=== PATIENT | male | born 1965 | race African-American/Black ===

== ENCOUNTER 2021-02-27 13:06 | Emergency (ER) | payer OTHER, MEDICAID ==
[~2021-02-27] VITALS: Ht 170.2 cm; Wt 133.9 kg
[2021-02-27 13:22] VITALS: BP 152/76
--- NOTE | 2021-02-27 13:44 | NUR ---
PT AMB TO BED 11.
--- NOTE | 2021-02-27 14:01 | NUR ---
56 Y/O MALE C/O ABD PAIN X2 WEEKS WITH DARD TO BLACK STOOL X1 WEEK. PAIN IS 5/10 IN UMBILICAL REGION, NON RADIATING, ACHE. NOP NAUSEA, - VOMITING, - DIZZY, - WEAKNESS.PT HAS BEEN USING PEPTO BISMUTH WITH ONLY TEMPORARY RELIEF. PT AMBULATED TO BED UNASSISTED WITH USE OF CANE. PT IN LAYING IN BED W/ RAIL UP X1, BED IN LOWEST POSITION. HX: DEGENERATIVE ARTHRITIS, HTN, DM, R HIP RELACEMENT ALLERGIES: UNKNOWN "LIQUID ABX" MEDS: METFORMIN, LOSARTAN, + UNKNOWN MEDS
--- NOTE | 2021-02-27 14:31 | NUR ---
PT TAKEN TO XRAY VIA W/C
--- NOTE | 2021-02-27 14:53 | NUR ---
RETURNED FROM RADIOLOGY
--- NOTE | 2021-02-27 14:54 | NUR ---
LABS AT BEDSIDE
[2021-02-27 15:12] LABS: BASOPHILS # (AUTO) 0.1 K/uL (0.00-0.22); BASOPHILS % (AUTO) 0.8 % (0.0-2.0); EOSINOPHILS # (AUTO) 0.2 K/uL (0-0.4); EOSINOPHILS % (AUTO) 2.8 % (0.0-4.0); HEMATOCRIT 40.7 % (36-52); HEMOGLOBIN 13.7 g/dL (12.0-18.0); LYMPHOCYTES # (AUTO) 2.2 K/uL (2.0-11.5); LYMPHOCYTES % (AUTO) 29.2 % (20.5-51.1); MEAN CORPUSCULAR HEMOGLOBIN 29 pg (27-31); MEAN CORPUSCULAR HGB CONC 34 g/dL (33-37); MEAN CORPUSCULAR VOLUME 86.4 fL (80-94); MONOCYTES # (AUTO) 0.8 K/uL (0.8-1.0); MONOCYTES % (AUTO) 10.9 % (1.7-9.3); NEUTROPHILS # (AUTO) 4.2 K/uL (1.8-7.7); NEUTROPHILS % (AUTO) 56.3 % (42.2-75.2); PLATELET COUNT (AUTO) 224 K/uL (140-450); RED CELL DISTRIBUTION WIDTH 13.3 % (11.6-13.7); WHITE BLOOD COUNT (AUTO) 7.5 K/uL (4.8-10.8)
[2021-02-27 15:16] LABS: APPEARANCE,URINE CLEAR (CLEAR); BILIRUBIN,URINE 1+ (NEGATIVE); BLOOD, URINE NEGATIVE (NEGATIVE); COLOR,URINE AMBER (YELLOW); LEUKOCYTE ESTERASE ,URINE NEGATIVE (NEGATIVE); NITRITE, URINE NEGATIVE (NEGATIVE); PH,URINE 5.5 (5.0-9.0); UGLUCOSE NEGATIVE (NEGATIVE)
[2021-02-27 15:27] LABS: ALBUMIN 3.7 g/dL (3.4-5.0); ANION GAP 16.4 (8-16); CARBON DIOXIDE 26.2 mmol/L (21-32); CREATININE 1.1 mg/dL (0.6-1.3); POTASSIUM 3.6 mmol/L (3.5-5.1); TOTAL BILIRUBIN 0.3 mg/dL (0.0-1.0)
[2021-02-27 16:09] VITALS: BP 126/84
--- NOTE | 2021-02-27 16:09 | NUR ---
Patient discharged with v/s stable. Written and verbal after care instructions given and explained. Patient verbalized understanding. Ambulatory with steady gait. All questions addressed prior to discharge. Advised to follow up with PMD.
== END 2021-02-27 16:09 | disposition home or self-care (01) ==
LOC: MED 13:06
DX: K92.1 Melena (principal); E11.9 Type 2 diabetes mellitus without complications; I10 Essential (primary) hypertension
CPT/HCPCS: 36415; 74021; 80053; 81003; 83605; 85025; 99284; Q0092

== ENCOUNTER 2022-04-03 10:25 | Emergency (ER) | payer OTHER, MEDICAID ==
[~2022-04-03] VITALS: Ht 170.2 cm; Wt 35.8 kg
[2022-04-03] MEDS ORDERED: ACETAMINOPHEN EXTRA STRENGTH 500 MG TAB PO ONE (10:45)
--- NOTE | 2022-04-03 10:55 | NUR ---
PATIENT PRESENTS TO ED WITH HIP PAIN . PT STATES HE HAS HX OF HIP REPLACEMENT . DENIES N/V/D; SKIN IS PINK/WARM/DRY; AAOX4 WITH EVEN AND STEADY GAIT; LUNGS CLEAR BL; HR EVEN AND REGULAR; PT DENIES ANY FEVER, CP, SOB, OR COUGH AT THIS TIME; PATIENT STATES PAIN OF 0/10 AT THIS TIME; VSS; PATIENT POSITIONED FOR COMFORT; HOB ELEVATED; BEDRAILS UP X2; BED DOWN. ER MD MADE AWARE OF PT STATUS.
[2022-04-03] MEDS ORDERED: MUC600 PO (11:17)
[2022-04-03] MEDS ORDERED: CYCL-711 PO (11:17)
--- NOTE | 2022-04-03 11:30 | NUR ---
Patient discharged with v/s stable. Written and verbal after care instructions given and explained. Patient alert, oriented and verbalized understanding of instructions. Ambulatory with steady gait. All questions addressed prior to discharge. ID band removed. Patient advised to follow up with PMD. Rx of FLEXERIL,MUCINEX given. Patient educated on indication of medication including possible reaction and side effects. Opportunity to ask questions provided and answered.
== END 2022-04-03 11:38 | disposition home or self-care (01) ==
LOC: MED 10:25
DX: S70.01XA Contusion of right hip, initial encounter (principal); J06.9 Acute upper respiratory infection, unspecified; I10 Essential (primary) hypertension; E11.9 Type 2 diabetes mellitus without complications; Z79.4 Long term (current) use of insulin; Z79.899 Other long term (current) drug therapy; W18.30XA Fall on same level, unspecified, initial encounter; Y93.89 Activity, other specified; Y92.89 Other specified places as the place of occurrence of the external cause; Y99.8 Other external cause status
CPT/HCPCS: 73502; 82948; 99284

== ENCOUNTER 2022-04-27 09:29 | Emergency (ER) | payer OTHER, MEDICAID ==
[~2022-04-27] VITALS: Ht 170.2 cm; Wt 124.3 kg
[~2022-04-27 09:29] MED LIST: CYCL-711 PO; MUC600 PO
[2022-04-27 09:38] VITALS: BP 137/112
--- NOTE | 2022-04-27 10:00 | NUR ---
57M presents to ED with c/o migraine headache since last night. Pt reports a constant, non radiating, throbbing like, 7/10 head pain. Pt denies N/V, vision or hearing changes, trauma/injury or use of meds today. Pt reports taking Gabapentin for migraine headache last night with no relief.
[2022-04-27] MEDS ORDERED: diphenhydrAMINE 50 MG CAP PO ONE (10:45)
[2022-04-27] MEDS ORDERED: MORPHINE SULFATE 4 MG/ML SYR IM ONE (10:45)
[2022-04-27] MEDS ORDERED: METOCLOPRAMIDE 10 MG TAB PO ONE (10:45)
--- NOTE | 2022-04-27 12:12 | NUR ---
Patient discharged with v/s stable. Written and verbal after care instructions given. Patient verbalized understanding. Ambulatory with steady gait. All questions addressed prior to discharge. Advised to follow up with PMD.
--- NOTE | 2022-04-27 12:13 | NUR ---
The patient's care was reviewed and supervised by Nayeli Black, RN, RN.
== END 2022-04-27 12:12 | disposition home or self-care (01) ==
LOC: MED 09:29
DX: G43.909 Migraine, unspecified, not intractable, without status migrainosus (principal); E11.9 Type 2 diabetes mellitus without complications; I10 Essential (primary) hypertension
CPT/HCPCS: 96372; 99283; J2270; J8597; Q0163

== ENCOUNTER 2023-06-13 10:37 | Emergency (ER) | payer OTHER, MEDICAID ==
[~2023-06-13] VITALS: Ht 170.2 cm; Wt 111.1 kg
[2023-06-13 10:41] VITALS: BP 161/107; PULSE 87; RESP 18; TEMP 97.8; O2SAT 96
[2023-06-13 11:19] VITALS: O2SAT 96
== END 2023-06-13 14:31 | disposition left against medical advice (07) ==
LOC: MED 10:37
DX: M54.50 Low back pain, unspecified (principal); Z53.21 Procedure and treatment not carried out due to patient leaving prior to being seen by health care provider
CPT/HCPCS: 99281

== ENCOUNTER 2023-12-25 17:40 | Emergency (ER) | payer OTHER, MEDICAID ==
[~2023-12-25] VITALS: Ht 170.2 cm; Wt 122.6 kg
[2023-12-25 17:58] VITALS: BP 138/81; PULSE 90; RESP 17; TEMP 97.9; O2SAT 97
== END 2023-12-25 20:56 | disposition left against medical advice (07) ==
LOC: MED 17:40
DX: S39.012A Strain of muscle, fascia and tendon of lower back, initial encounter (principal); E11.9 Type 2 diabetes mellitus without complications; I10 Essential (primary) hypertension; Z79.899 Other long term (current) drug therapy; Z88.1 Allergy status to other antibiotic agents; X58.XXXA Exposure to other specified factors, initial encounter; Y93.89 Activity, other specified; Y92.89 Other specified places as the place of occurrence of the external cause; Y99.8 Other external cause status
CPT/HCPCS: 99281